=== PATIENT | male | born 2005 | race Caucasian/White ===

== ENCOUNTER 2024-03-10 05:11 | Emergency (ER) | payer BC, MEDICAID, SELFPAY ==
[2024-03-10 05:12] VITALS: BP 104/75; PULSE 95; RESP 16; TEMP 36.8; O2SAT 98; BMI 23.1
--- NOTE | 2024-03-10 05:23 | W.ED.GENADLT ---
HPI - General Adult General: Chief complaint: General Medical Stated complaint: Fit for conf. Time Seen by Provider: 03/10/24 05:14 History of Present Illness: Patient brought in by police for fit for confinement. They brought in her own testing kit for blood alcohol level. If there is protocol to have it for confinement. Patient has no complaints at this time and says he is doing good other than being arrested. Related Data Previous Rx's Medication Instructions Recorded azithromycin 500 mg tablet 1,000 mg (2 x 500 mg) PO ONCE #2 08/03/21 (Zithromax) tabs Allergies Allergy/AdvReac Type Severity Reaction Status Date / Time No Known Allergies Allergy Verified 08/03/21 11:24 Review of Systems General: Reports: 10 or more systems reviewed and unremarkable except in HPI and below PFSH ED PFSH: Social History Smoking and tobacco/nicotine status: tobacco/nicotine user, details unknown Physical Exam Const: COMMON NORMALS: no acute distress, average body habitus, patient oriented x3, healthy appearing, alert and well nourished HENMT: COMMON NORMALS: normocephalic, atraumatic, hearing grossly normal bilaterally, external ears normal, Normal external nose present and moist oral mucous membranes HEAD & SCALP: normocephalic and atraumatic NOSE: Normal external nose present EXTERNAL EAR: Yes external ears normal Neck/C-Spine: COMMON NORMALS: no JVD Chest: COMMONS NORMALS: normal inspection of the chest and normal palpation of entire chest wall Resp: COMMON NORMALS: normal respiratory effort, No retractions, No use of accessory muscles and clear to auscultation bilaterally AUSCULTATION: clear to auscultation bilaterally Cardio: COMMON NORMALS: no JVD, regular rate, regular rhythm, S1 normal heart sound present, S2 normal heart sound present, No gallops present (Cardio), No clicks present (Cardio), No murmurs present (Cardio) and No rub (Cardio) RATE: regular rate RHYTHM: regular rhythm HEART SOUNDS: S1 normal heart sound present and S2 normal heart sound present GI: COMMON NORMALS: Normal to inspection, nondistended, normoactive bowel sounds present, Soft to palpation, non-tender, No hepatosplenomegaly present and no masses PALPATION: Yes Soft to palpation and Yes No hepatosplenomegaly present Neuro: COMMON NORMALS: patient oriented x3 SENSORIUM/ORIENTATION: Yes alert Course Vital Signs: Vital signs: Vital Signs Temperature 98.2 F 03/10/24 05:12 Pulse Rate 95 03/10/24 05:12 Respiratory Rate 16 03/10/24 05:12 Blood Pressure 104/75 03/10/24 05:12 Pulse Oximetry 98 03/10/24 05:12 Oxygen Delivery Me thod Room Air 03/10/24 05:12 MDM - General Adult Medical Decision Making Physical exam was performed blood work was obtained for please for their kit. Is felt the patient is fit for confinement patient be discharged back to their custody. Medical Records I reviewed the patient's medical records. Lab Data I reviewed the patient's lab results. No radiology studies performed this visit Discharge Plan Discharge Patient Disposition: Home Clinical Impression: Normal exam Condition: Stable Prescriptions: No Action azithromycin [Zithromax] 500 mg tablet 1,000 mg PO ONCE Qty: 2 0RF Discharge Orders: Discharge ED (Routine); Ordered 03/10/24 Ordered By: David Tello Referrals: Zelda Valdez FNP [Primary Care Provider] - 1 week Taco Ibrahim FNP [Family Provider] - Patient Instructions: Normal Exam (ED) Activity Restrictions/Additional Instructions: You have been evaluated and it is felt you are physically fit for confinement. You will be discharged back to police custody. Coding Level of Care Code ED Heel Builder Machine for Shar Wharton
[2024-03-10 05:34] VITALS: BP 104/75; PULSE 90; RESP 16; O2SAT 99
[2024-03-10 05:38] VITALS: BP 104/68; PULSE 68; RESP 16; O2SAT 99
== END 2024-03-10 05:39 | disposition home or self-care (01) ==
LOC: ER 05:28
PROVIDERS: Emergency Provider Emergency Medicine; PCP Nurse Practitioner Family
DX: Z02.89 Encounter for other administrative examinations (principal); Z72.0 Tobacco use
CPT/HCPCS: 99281